=== PATIENT | male | born 1970 | race Caucasian/White ===

== ENCOUNTER 2017-03-12 08:49 | Observation (INO) | payer OTHER ==
[~2017-03-12] VITALS: Ht 175.3 cm; Wt 132.0 kg
--- NOTE | ~2017-03-12 | EKG ---
[address] [place] [address] ELECTROCARDIOGRAM REPORT Name: DMITRIY MENDOSA Room #: [facility].#: [id number] Admission: 03/12/17 Attend Phys: Saud Noel MD Discharge: 03/13/17 Date of : 68 Report #: [id number] THIS REPORT FOR: //name// [facility] ED Test Date: 2017-03-12 Test Time: 09:05:58 Pat Name: DMITRIY MENDOSA Department: Room: [facility] Gender: M Drawer In: DORA : 1970 Requested By: Stephen Banks Order Number: [id number] MD: Scooter Allison Measurements Intervals [place] Rate: 67 P: -16 AK: 150 QRS: 36 QRSD: 102 T: 2 QT: 379 QTc: 400 Interpretive Statements Sinus rhythm Compared to ECG 10/17/2015 20:58:49 No significant changes Electronically Signed On 03-14-2017 12:15:11 [employer] by Scooter Allison [email or web address] <ELECTRONICALLY SIGNED> By: Scooter Allison MD 03/14/17 1215 D: [id number] 4 Scooter Allison MD /SHABBIR
[~2017-03-12 08:49] MED LIST: HYDROCHLOROTHIA25 M2; IBUPROFEN 600600 M1 PO; KEFLEX500 MG PO; MOBIC15 MG PO; NORCO 5-325 TA1 EACH PO; OXYCONTIN; PYRIDIUM200 MG PO
[2017-03-12 08:50] VITALS: BP 140/101
[2017-03-12 09:30] LABS: ABSOLUTE NEUTROPHILS 4.1 thou/uL (1.4-8.2); ANION GAP 8 mmol/L (7-16); BASOPHILS 1.2 % (0.0-2.0); BUN 13 mg/dL (7-18); CHLORIDE 104 mmol/L (98-107); CO2 28 mmol/L (21-32); CREATININE 1.1 mg/dL (0.7-1.3); EOSINOPHILS 1.3 % (0.0-3.0); GLUCOSE 106 mg/dL (74-106); HEMATOCRIT 47.2 % (42.0-52.0); LYMPHOCYTES 37.9 % (24.0-44.0); MCH 29.5 pg (26.0-34.0); MCHC 33.8 g/dL (28.0-37.0); MCV 87.3 fL (80.0-100.0); MONOCYTES 8.5 % (1.0-8.0); PLATELET COUNT 195 thou/uL (150-400); POLYS 51.1 % (36.0-66.0); POTASSIUM 4.5 mmol/L (3.5-5.1); RBC 5.41 mil/uL (4.50-6.00); RDW 13.7 % (10.5-14.5); SODIUM 140 mmol/L (136-145); WBC 8.1 thou/uL (4.0-11.0)
[2017-03-12 09:31] LABS: MANUAL DIFF NO
[2017-03-12 09:39] LABS: ALBUMIN 3.7 g/dL (3.4-5.0); ALKALINE PHOSPHATASE 86 U/L (46-116); SGOT 33 U/L (15-37); SGPT 70 U/L (30-65); TOTAL BILIRUBIN 0.5 mg/dL (<0.1-1.0); TOTAL PROTEIN 7.6 g/dL (6.4-8.2); TROPONIN-I < 0.04 ng/mL (<0.06)
[2017-03-12] MEDS ORDERED: BYSTOLIC 5 MG5 M1 PO (09:49)
[2017-03-12] MEDS ORDERED: NORCO 5-325 TA1 EACH PO (09:50)
[2017-03-12 13:38] VITALS: BP 120/74
[2017-03-12 14:30] VITALS: BP 120/85
[2017-03-12 19:30] VITALS: BP 125/69
[2017-03-13 00:15] VITALS: BP 116/79
[2017-03-13 03:45] VITALS: BP 116/66
[2017-03-13 07:11] VITALS: BP 113/75
[2017-03-13 10:06] VITALS: BP 113/75
== END 2017-03-13 10:30 | disposition home or self-care (01) ==
LOC: ER 08:49 → 4N 10:56 → EROBS 10:56 → 4N 10:56 → ER 14:02 → 4N 14:02 → ENTRNSPT 03-13 10:26 → EDTRNSPTSTS 03-13 10:28 → 4N 03-13 10:30
PROVIDERS: Physician Assistant
DX: R07.89 Other chest pain (principal); I10 Essential (primary) hypertension; F32.9 Major depressive disorder, single episode, unspecified
CPT/HCPCS: 10790

== ENCOUNTER → 2017-09-24 | Outpatient (CLI) | payer OTHER ==
[~2017-09-24] MED LIST changes: +BYSTOLIC 5 MG5 M1 PO
== END ==
LOC: RAD 08:46
DX: M79.671 Pain in right foot (principal)

== ENCOUNTER → 2018-11-13 | Outpatient (CLI) | payer BC, OTHER ==
--- NOTE | 2018-11-24 21:13 | SLE ---
[facility] [place] [address] POLYSOMNOGRAPHY STUDY Name: DMITRIY MENDOSA [id number] Admission: 11/13/18 Attend Phys: Dov Ladd MD Discharge: Date of : 68 Report #: [id number] THIS REPORT FOR: //name// CC: Dov Jordan DATE OF SERVICE: 11/13/2018 SLEEP STUDY ATTENDING PHYSICIAN: Dr. Chris Troncoso. The patient is a 48-year-old who had a home sleep study and was found to have severe CHRISTINE. The patient weighs 291 pounds with a BMI of 44. The patient returned to [place] [facility] for CPAP titration study. During the night study, the patient spent 440 minutes in bed and slept for 308 minutes with a sleep efficiency of 69%. Sleep latency was 14.4 minutes with a REM latency of 44 minutes, which was short. Overall, sleep architecture showed normal stage 1 and stage 2 sleep, increased slow wave and increased REM sleep. EKG monitoring revealed an average heart rate of 71 beats per minute. No sustained arrhythmias observed. PLMs were seen at an index of 18 per hour and 4 per hour caused EEG arousals. The patient was started on CPAP at a pressure of 5 cm of water and titrated up to 12 cm of water. At the final pressure, the patient slept for 86 minutes including 41 minutes of REM sleep. The patient had supine sleep as well. The patient's AHI was reduced to 4.2 per hour and oxygen saturation remained above 89%. IMPRESSION: 1. Severe sleep apnea diagnosed by home sleep study. 2. Mild PLMs, which does not need to be treated unless the patient has symptoms of restless legs during the day. RECOMMENDATIONS: 1. CPAP at 12 cm water completely eliminated the patient's sleep apnea and should be used on a nightly basis. 2. Follow up in 4-6 weeks to assess compliance with CPAP and to document clinical improvement. 3. Weight loss is strongly advised. 4. Avoid [employer] depressants. [facility] [address] [place] [address] POLYSOMNOGRAPHY STUDY Name: DMITRIY MENDOSA [facility] [id number] Admission: 11/13/18 Attend Phys: Dov Ladd MD Discharge: Date of : 68 Report #: [id number] 5. Cautioned regarding driving until symptoms of sleep apnea resolve with the use of CPAP. <ELECTRONICALLY SIGNED> By: Dov Ladd MD 11/24/18 2113 [id number] Dov Ladd MD /nt
== END ==
LOC: SLEEPLAB 10:44
DX: G47.33 Obstructive sleep apnea (adult) (pediatric) (principal); Z88.8 Allergy status to other drugs, medicaments and biological substances; Z88.0 Allergy status to penicillin

== ENCOUNTER → 2019-12-22 | Outpatient (CLI) | payer BC, OTHER | LOC: LAB 09:03 | PROVIDERS: ATTEND Neuromusculoskeletal Medicine & OMM | DX: U07.1 COVID-19 (principal) ==

== ENCOUNTER → 2020-05-16 | Outpatient (CLI) | payer BC, OTHER | LOC: LAB 13:23 | PROVIDERS: ATTEND Neuromusculoskeletal Medicine & OMM | DX: R50.9 Fever, unspecified (principal); M79.10 Myalgia, unspecified site; Z20.822 Contact with and (suspected) exposure to COVID-19 ==

== ENCOUNTER → 2020-07-13 | Outpatient (CLI) | payer OTHER | LOC: CAT 07:52 | PROVIDERS: ATTEND Nurse Practitioner | DX: Z13.6 Encounter for screening for cardiovascular disorders (principal); I25.10 Atherosclerotic heart disease of native coronary artery without angina pectoris; E78.00 Pure hypercholesterolemia, unspecified ==